=== PATIENT | female | born 1960 | race Caucasian/White ===

== ENCOUNTER 2019-11-12 09:33 | Outpatient (CLI) | payer OTHER, SELFPAY ==
--- NOTE | 2019-11-12 09:41 | CT_ITS ---
WS: [id number] CT CHEST TECHNIQUE: Noncontrast CT of the chest with coronal and sagittal reformatted images. CLINICAL INFORMATION: UPPER LOBE PULMONARY NODULE, TOBACCO ABUSE DISORDER COMPARISON: CT chest DLP: 927.[address] scans at [facility] use at least one of these dose optimization techniques: automat ed exposure control; mA and/or kV adjustment per patient size (includes targeted exams where dose is matched to clinical indication); or iterative reconstruction. FINDINGS: Stable left lower lobe noncalcified pulmonary nodule measuring 3.5 mm unchanged. This is unchanged si nce . Centrally calcified lesion right upper lobe appears similar to the radiograph 2017 herbert suring 11 mm. This is new since the CT in 2014. A few tiny surrounding micronodules. Differential con siderations include pulmonary hamartoma, calcified granuloma, or incidental vascular malformation. Sm all feeding adjacent vessel. No other suspicious pulmonary opacities. No acute pulmonary infiltrates. Normal thyroid gland. No med iastinal or hilar lymphadenopathy. Calcified precarinal lymph nodes. Adrenal glands are normal. Stable partially visualized hemangiomas within the right hepatic lobe appe ars stable since the CT abdomen pelvis 2014. CT/CT chest wo con [id number] IMPRESSION: 1. Stable noncalcified 3.5 mm nodule left lower lobe. Stable since 2014. 2. Centrally calcified 11 mm lesion in the right upper lobe laterally was pres ent on the radiograph 2017 but new since 2014. Recommend 6 month follow-up ches t CT. 3. No mediastinal or hilar lymphadenopathy. 4. Stable hepatic hemangiomas in the right hepatic lobe.
== END 2019-11-12 09:34 | disposition home or self-care (01) ==
LOC: RADWPI 09:39
PROVIDERS: Family Provider Family Medicine
DX: Z72.0 Tobacco use (principal); R91.1 Solitary pulmonary nodule; D18.09 Hemangioma of other sites
CPT/HCPCS: 71250

== ENCOUNTER 2019-12-26 07:24 | Outpatient (CLI) | payer OTHER, SELFPAY ==
--- NOTE | 2019-12-26 07:28 | MM_ITS ---
WS: [id number] BILATERAL DIGITAL SCREENING MAMMOGRAPHY WITH CAD CLINICAL INFORMATION: SCREENING HISTORY: Screening mammogram. Left breast soreness COMPARISON: August 20, 2018 TECHNIQUE: Bilateral CC and MLO views. FINDINGS: The breasts are composed of heterogeneous fibroglandular density tissue, which can limit the detectio n of small underlying mass lesions. No suspicious mass, asymmetry, calcifications, or architectural d istortion. No evidence of malignancy. Punctate calcifications left breast. MM/[place] [id number] IMPRESSION: BI-RADS: 2-Benign FOLLOW UP: 1 Year Follow-up Recommend return to annual screening mammography.
== END 2019-12-26 07:25 | disposition home or self-care (01) ==
LOC: RADSHAW 07:25
DX: Z12.31 Encounter for screening mammogram for malignant neoplasm of breast (principal)
CPT/HCPCS: 77067

== ENCOUNTER → 2020-10-11 09:42 | Outpatient (BNVA) | payer OTHER, SELFPAY | PROVIDERS: Visit Provider Nurse Practitioner Family | DX: Z20.822 Contact with and (suspected) exposure to COVID-19 (principal) | CPT/HCPCS: 87635 ==

== ENCOUNTER 2021-02-07 08:40 | Outpatient (CLI) | payer OTHER, SELFPAY ==
--- NOTE | 2021-02-07 08:46 | MM_ITS ---
WS: [id number] Exam: [id number] Date/Time of Exam: 02/07/2021 8:46 AM Reason For Exam: SCREENING VIEWS: MLO and CC views both breasts. Comparison made with prior exam of 07/20/2017, 08/20/2018 and 12/26/2019. Findings: There was no sign of mass, architectural distortion or suspicious calcification in either breast. He terogeneously dense MM/[place] [id number] Impression: BI-RADS: 2-Benign FOLLOW-UP: 1 Year Follow-up This mammogram was also analyzed by the Computer Aided Detection System R2 Imag e Client Relationship Consultant.
== END 2021-02-07 08:41 | disposition home or self-care (01) ==
LOC: RADSHAW 08:43
PROVIDERS: PCP Nurse Practitioner Family; Visit Provider Nurse Practitioner Family
DX: Z12.31 Encounter for screening mammogram for malignant neoplasm of breast (principal)
CPT/HCPCS: 77067